=== PATIENT | female | born 2005 | race Caucasian/White ===

== ENCOUNTER 2024-08-21 02:28 | Outpatient (CLI) | payer OTHER, SELFPAY ==
[2024-08-21 04:15] LABS: Hepatitis B Surface Antigen Non-Reactive (Nonreactive); Hepatitis C Virus Antibody Non-Reactive (Nonreactive)
[2024-08-21 04:34] LABS: HIV 1 & 2 Antibody Non-Reactive (Non-Reactiv); HIV 1 & 2 Antigen Non-Reactive (Non-Reactiv)
== END 2024-08-21 02:29 | disposition home or self-care (01) ==
PROVIDERS: Visit Provider Emergency Medicine
DX: T14.8XXA Other injury of unspecified body region, initial encounter (principal); W46.0XXA Contact with hypodermic needle, initial encounter
CPT/HCPCS: 86706; 86803; 87340; 87806

== ENCOUNTER → 2024-10-22 15:13 | Outpatient (BNVA) | payer OTHER, SELFPAY | PROVIDERS: Visit Provider Nurse Practitioner Women's Health | DX: Z01.419 Encounter for gynecological examination (general) (routine) without abnormal findings (principal); R30.0 Dysuria | CPT/HCPCS: 81000; 88175 ==

== ENCOUNTER → 2025-02-18 08:03 | Outpatient (BNVA) | payer OTHER, SELFPAY | PROVIDERS: Visit Provider Nurse Practitioner Women's Health | DX: N92.0 Excessive and frequent menstruation with regular cycle (principal); N83.02 Follicular cyst of left ovary | CPT/HCPCS: 76830 ==